=== PATIENT | male | born 1980 | race Caucasian/White ===

== ENCOUNTER 2017-07-13 06:10 | Emergency (ER) | payer BC, MEDICAID ==
[~2017-07-13] VITALS: Ht 177.8 cm; Wt 83.1 kg
[~2017-07-13 06:10] MED LIST: RANI150T8 PO
[2017-07-13] MEDS ORDERED: KETOROLAC 30 MG/1 ML ONE ×2 (06:58→06:59)
[2017-07-13] MEDS ORDERED: ALBUTEROL/IPRATROPIUM 2.5MG/0.5MG, 3 ML NPPB ONE (07:00)
[2017-07-13] MEDS ORDERED: KETOROLAC 30 MG/1 ML IM ONE (07:00)
[2017-07-13] MEDS ORDERED: ALBUTEROL/IPRATROPIUM 2.5MG/0.5MG, 3 ML ONE (07:56)
[2017-07-13 08:07] LABS: RAPID INFLUENZA A Negative (Negative); RAPID INFLUENZA B Negative (Negative)
[2017-07-13 08:24] VITALS: BP 128/74
== END 2017-07-13 08:26 | disposition home or self-care (01) ==
LOC: ED 07:14
DX: J20.9 Acute bronchitis, unspecified (principal); K08.89 Other specified disorders of teeth and supporting structures; K21.9 Gastro-esophageal reflux disease without esophagitis; G51.0 Bell's palsy
CPT/HCPCS: 71020; 87400; 94640; 96372; 99285; J1885; J7620

== ENCOUNTER 2019-12-23 13:21 | Emergency (ER) | payer BC ==
[~2019-12-23] VITALS: Ht 175.3 cm; Wt 82.0 kg
[~2019-12-23 13:21] MED LIST changes: +RANI-467 PO; -RANI150T8 PO
[2019-12-23 13:58] LABS: BASOPHILS # (AUTO) 0.01 x10^3/uL (0-0.1); BASOPHILS % (AUTO) 0 % (0-1); EOSINOPHILS # (AUTO) 0.18 x10^3/uL (0-0.4); EOSINOPHILS % (AUTO) 3 % (1-7); LYMPHOCYTES # (AUTO) 1.71 x10^3/uL (1-3.4); LYMPHOCYTES % (AUTO) 31 % (22-44); MD NO; MEAN CORPUSCULAR HEMOGLOBIN 32.1 pg (27.5-34.5); MEAN CORPUSCULAR HGB CONC 34.2 g/dL (33.2-36.2); MEAN CORPUSCULAR VOLUME 93.7 fL (81-97); MEAN PLATELET VOLUME 8.1 fL (7.4-10.4); MONOCYTES # (AUTO) 0.58 x10^3/uL (0.2-0.8); MONOCYTES % (AUTO) 10 % (2-9); NEUTROPHILS # (AUTO) 3.08 x10^3/uL (1.8-6.8); NEUTROPHILS % (AUTO) 55 % (42-75); PLATELET COUNT 260 x10^3/uL (130-400); RED BLOOD COUNT 5.14 x10^6/uL (4.38-5.82); RED CELL DISTRIBUTION WIDTH 13.6 % (9.4-14.8)
[2019-12-23] MEDS ORDERED: SODIUM CHLORIDE FLUSH 10ML SYR IVF ONE (14:00)
[2019-12-23] MEDS ORDERED: KETOROLAC 30 MG/1 ML IVPush ONE (14:00)
[2019-12-23 14:05] LABS: ALBUMIN 3.7 g/dL (3.4-5.0); ANION GAP 3 mmol/L (5-15); CALCIUM 8.5 mg/dL (8.5-10.1); CHLORIDE 111 mmol/L (98-107); CREATININE 0.92 mg/dL (0.7-1.3)
[2019-12-23] MEDS ORDERED: PLEASE ENTER HEIGHT AND WEIGHT MC SCH (14:07)
[2019-12-23] MEDS ORDERED: KETOROLAC 30 MG/1 ML ONE (14:10)
--- NOTE | 2019-12-23 14:44 | NUR ---
Medicated per emar for left flank pain rated at 6/10 Ua sent
[2019-12-23 15:02] LABS: MICROSCOPIC INDICATED
--- NOTE | 2019-12-23 15:15 | NUR ---
WITH REASSESSMENT PAIN IMPROVED TO 1/10 REPORT TO EFREN RN
[2019-12-23 15:29] LABS: CULTURE INDICATED? NO
[2019-12-23 17:26] VITALS: BP 129/86
--- NOTE | 2019-12-23 17:26 | NUR ---
nimisha tobar given dc instruction
== END 2019-12-23 17:30 | disposition home or self-care (01) ==
LOC: ED 13:49
DX: N20.0 Calculus of kidney (principal); R30.0 Dysuria; F17.210 Nicotine dependence, cigarettes, uncomplicated
CPT/HCPCS: 36415; 74176; 80048; 81001; 82040; 85025; 96374; 99284; J1885

== ENCOUNTER 2020-01-15 02:10 | Emergency (ER) | payer BC ==
[~2020-01-15] VITALS: Ht 177.8 cm; Wt 78.0 kg
--- NOTE | 2020-01-15 02:28 | NUR ---
Pt presents to ed c/o coughx1 month and wheezing. Denies any febrile s/s. Denies any further respiratory s/s. 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 States a pack a day smoker and family hx of heart dx, denies any heart dx himself.
[2020-01-15] MEDS ORDERED: ASPIRIN 81 MG TABLET CHEW PO ONE (02:30)
[2020-01-15] MEDS ORDERED: ASPIRIN 81 MG TABLET CHEW ONE (02:32)
[2020-01-15 02:48] LABS: BASOPHILS # (AUTO) 0.04 x10^3/uL (0-0.1); BASOPHILS % (AUTO) 1 % (0-1); EOSINOPHILS # (AUTO) 0.25 x10^3/uL (0-0.4); EOSINOPHILS % (AUTO) 3 % (1-7); LYMPHOCYTES # (AUTO) 2.43 x10^3/uL (1-3.4); LYMPHOCYTES % (AUTO) 32 % (22-44); MD NO; MEAN CORPUSCULAR HEMOGLOBIN 31.8 pg (27.5-34.5); MEAN CORPUSCULAR HGB CONC 33.5 g/dL (33.2-36.2); MEAN CORPUSCULAR VOLUME 94.8 fL (81-97); MEAN PLATELET VOLUME 7.3 fL (7.4-10.4); MONOCYTES % (AUTO) 6 % (2-9); NEUTROPHILS # (AUTO) 4.48 x10^3/uL (1.8-6.8); NEUTROPHILS % (AUTO) 58 % (42-75); PLATELET COUNT 288 x10^3/uL (130-400); RED BLOOD COUNT 5.08 x10^6/uL (4.38-5.82); RED CELL DISTRIBUTION WIDTH 13.1 % (9.4-14.8)
[2020-01-15 03:01] LABS: ALANINE AMINOTRANSFERASE 28 U/L (12-78); ALBUMIN 3.6 g/dL (3.4-5.0); ANION GAP 5 mmol/L (5-15); CALCIUM 8.7 mg/dL (8.5-10.1); CHLORIDE 109 mmol/L (98-107); CREATININE 0.89 mg/dL (0.7-1.3)
[2020-01-15 03:06] LABS: ALKALINE PHOSPHATASE 83 U/L (45-117); BILIRUBIN,TOTAL 0.3 mg/dL (0.2-1.0); TOTAL PROTEIN 7.2 g/dL (6.4-8.2); TROPONIN I < 0.015 ng/mL (0.000-0.045)
[2020-01-15 03:31] VITALS: BP 139/90
--- NOTE | 2020-01-15 04:07 | NUR ---
Patient given discharge instructions and they have confirmed that they understand the instructions. Patient ambulatory with steady gait.
== END 2020-01-15 04:09 | disposition home or self-care (01) ==
LOC: ED 02:32
DX: J44.1 Chronic obstructive pulmonary disease with (acute) exacerbation (principal); R07.89 Other chest pain; F17.210 Nicotine dependence, cigarettes, uncomplicated
CPT/HCPCS: 36415; 71045; 80053; 83880; 84484; 85025; 93005; 99285; 99406; J7512

== ENCOUNTER 2020-01-26 16:23 | Emergency (ER) | payer BC ==
[~2020-01-26] VITALS: Ht 177.8 cm; Wt 79.5 kg
[2020-01-26 16:26] VITALS: BP 114/72
--- NOTE | 2020-01-26 17:00 | NUR ---
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
--- NOTE | 2020-01-26 17:06 | NUR ---
FIRST CONTACT WITH PT. PT REPORTS FLANK PAIN X TWO DAYS. HX OF KIDNEY STONES, "THIS FEELS EXACTLY THE SAME". PT REPORTS "I THINK IT PASSED" "MY PAIN IS PRETTY MUCH GONE". PT AMBULATORY TO RESTROOM TO PROVIDE UA.
[2020-01-26] MEDS ORDERED: KETOROLAC 60 MG/2 ML ONE (17:18)
--- NOTE | 2020-01-26 17:25 | NUR ---
UA SENT MEDICATED PER EMAR
[2020-01-26] MEDS ORDERED: KETOROLAC 30 MG/1 ML IM ONE (17:30)
[2020-01-26 18:01] LABS: MICROSCOPIC INDICATED
[2020-01-26 18:03] LABS: CULTURE INDICATED? NO
== END 2020-01-26 18:30 | disposition home or self-care (01) ==
LOC: ED 18:00
DX: N20.1 Calculus of ureter (principal); N23 Unspecified renal colic; R31.9 Hematuria, unspecified; J44.9 Chronic obstructive pulmonary disease, unspecified; F17.200 Nicotine dependence, unspecified, uncomplicated
CPT/HCPCS: 81001; 96372; 99283; J1885

== ENCOUNTER 2020-02-06 03:52 | Emergency (ER) | payer BC, OTHER ==
[~2020-02-06] VITALS: Ht 177.8 cm; Wt 79.8 kg
[2020-02-06 03:54] VITALS: BP 128/89
[2020-02-06] MEDS ORDERED: HYDROcodone/APAP 5/325 TABLET ONE (04:11)
[2020-02-06] MEDS ORDERED: HYDROcodone/APAP 5/325 TABLET PO PRN (04:30)
--- NOTE | 2020-02-06 05:29 | NUR ---
Patient/Caregiver given discharge instructions and they have confirmed that they understand the instructions. Patient ambulatory with steady gait.
== END 2020-02-06 05:30 | disposition home or self-care (01) ==
LOC: ED 04:26
DX: G89.11 Acute pain due to trauma (principal); M25.561 Pain in right knee; M79.671 Pain in right foot; J44.9 Chronic obstructive pulmonary disease, unspecified; K21.9 Gastro-esophageal reflux disease without esophagitis; F17.200 Nicotine dependence, unspecified, uncomplicated; X58.XXXA Exposure to other specified factors, initial encounter; Y93.89 Activity, other specified; Y92.69 Other specified industrial and construction area as the place of occurrence of the external cause; Y99.8 Other external cause status
CPT/HCPCS: 99284

== ENCOUNTER 2020-05-04 08:47 | Emergency (ER) | payer OTHER ==
[~2020-05-04] VITALS: Ht 177.8 cm; Wt 77.4 kg
[2020-05-04 08:49] VITALS: BP 107/72
[2020-05-04] MEDS ORDERED: KETOROLAC 30 MG/1 ML ONE (09:10)
[2020-05-04] MEDS ORDERED: OXYcodone/APAP 5/325MG TABLET ONE (09:10)
[2020-05-04] MEDS ORDERED: KETOROLAC 30 MG/1 ML IM ONE (09:30)
[2020-05-04] MEDS ORDERED: OXYcodone/APAP 5/325MG TABLET PO ONE (09:30)
[2020-05-04 09:37] LABS: MICROSCOPIC INDICATED
--- NOTE | 2020-05-04 10:13 | NUR ---
TASK RN: Patient/Caregiver given discharge instructions and they have confirmed that they understand the instructions. Patient ambulatory with steady gait.
== END 2020-05-04 10:14 | disposition home or self-care (01) ==
LOC: ED 09:08
DX: N23 Unspecified renal colic (principal); K21.9 Gastro-esophageal reflux disease without esophagitis; J44.9 Chronic obstructive pulmonary disease, unspecified; G51.0 Bell's palsy
CPT/HCPCS: 81001; 96372; 99283; J1885

== ENCOUNTER 2020-05-18 07:35 | Emergency (ER) | payer BC, OTHER ==
[~2020-05-18] VITALS: Ht 177.8 cm; Wt 78.2 kg
[2020-05-18] MEDS ORDERED: ONDANSETRON 2MG/ML, 2ML IVPush ONE (08:00)
[2020-05-18] MEDS ORDERED: KETOROLAC 30 MG/1 ML IVPush ONE (08:00)
[2020-05-18] MEDS ORDERED: SODIUM CHLORIDE FLUSH 10ML SYR IVF ONE (08:00)
[2020-05-18] MEDS ORDERED: ONDANSETRON 2MG/ML, 2ML ONE (08:12)
[2020-05-18] MEDS ORDERED: KETOROLAC 30 MG/1 ML ONE (08:12)
--- NOTE | 2020-05-18 08:17 | NUR ---
PATIENT C/O 05/17 LEFT FLANK PAIN. MEDICATED PER eMAR, EDUCATED ON NEED FOR URINE SAMPLE. NO FURTHER NEEDS AT THIS TIME.
[2020-05-18 08:18] LABS: BASOPHILS # (AUTO) 0.03 x10^3/uL (0-0.1); BASOPHILS % (AUTO) 0 % (0-1); EOSINOPHILS # (AUTO) 0.22 x10^3/uL (0-0.4); EOSINOPHILS % (AUTO) 3 % (1-7); LYMPHOCYTES # (AUTO) 2.05 x10^3/uL (1-3.4); LYMPHOCYTES % (AUTO) 26 % (22-44); MD NO; MEAN CORPUSCULAR HEMOGLOBIN 31.4 pg (27.5-34.5); MEAN CORPUSCULAR HGB CONC 32.6 g/dL (33.2-36.2); MEAN CORPUSCULAR VOLUME 96.4 fL (81-97); MEAN PLATELET VOLUME 7.6 fL (7.4-10.4); MONOCYTES # (AUTO) 0.62 x10^3/uL (0.2-0.8); MONOCYTES % (AUTO) 8 % (2-9); NEUTROPHILS # (AUTO) 4.89 x10^3/uL (1.8-6.8); NEUTROPHILS % (AUTO) 63 % (42-75); PLATELET COUNT 301 x10^3/uL (130-400); RED BLOOD COUNT 5.54 x10^6/uL (4.38-5.82); RED CELL DISTRIBUTION WIDTH 13.1 % (9.4-14.8)
[2020-05-18 08:29] LABS: ANION GAP 3 mmol/L (5-15); CALCIUM 8.6 mg/dL (8.5-10.1); CHLORIDE 112 mmol/L (98-107); CREATININE 1.27 mg/dL (0.7-1.3)
[2020-05-18] MEDS ORDERED: MORPHINE SULFATE 4 MG/ML, 1ML ONE (09:14)
--- NOTE | 2020-05-18 09:19 | NUR ---
PT CONTINUES TO C/O 07/17 FLANK PAIN, ER PROVIDER MADE AWARE. ADDITIONAL ORDERS RECIEVED. PT MEDICATED PER DEC. Addendum: 05/18/20 at 0920 by [email or web address] PT REMINDED NEED FOR URINE SAMPLE, PT STATES UNABLE TO URINATE AT THIS TIME D/T PAIN LEVEL
[2020-05-18 09:20] VITALS: BP 140/91
[2020-05-18] MEDS ORDERED: MORPHINE SULFATE 4 MG/ML, 1ML IVPush ONE (09:30)
[2020-05-18 09:37] LABS: MICROSCOPIC AUTO
--- NOTE | 2020-05-18 10:22 | NUR ---
PT PIV REMOVED, PT VERBALIZED UNDERSTANDING OF DC TEACHING. PT UP IN RM GETTING DRESSED. UC CALLED THIS RN STATING PT CLAIMING HE IS UNABLE TO WALK AND PAIN HAS RETURNED. DISCUSSED WITH ER PROVIDER, PO MED ORDERED. DISCUSSED WITH PT HE WILL NOT RECIEVE IV MEDS PRIOR TO DC, OFFERED [facility], PT DECLINED. PT AMBULATED WITH THIS RN TO DC DESK, PT ABLE TO AMBULATED WITH STEADY GAIT. VERIFIED PT WITH [facility].
[2020-05-18] MEDS ORDERED: HYDROcodone/APAP 5/325 TABLET PO ONE (10:30)
== END 2020-05-18 10:26 | disposition home or self-care (01) ==
LOC: ED 09:10
DX: N20.1 Calculus of ureter (principal); R10.9 Unspecified abdominal pain; R31.9 Hematuria, unspecified; R11.0 Nausea; J44.9 Chronic obstructive pulmonary disease, unspecified; K21.9 Gastro-esophageal reflux disease without esophagitis; F17.210 Nicotine dependence, cigarettes, uncomplicated
CPT/HCPCS: 36415; 74176; 80048; 81001; 82040; 85025; 96374; 96375; 99284; J1885; J2270; J2405

== ENCOUNTER 2020-06-23 21:59 | Emergency (ER) | payer BC, OTHER ==
[~2020-06-23] VITALS: Ht 177.8 cm; Wt 77.5 kg
[2020-06-23 22:01] VITALS: BP 128/70
--- NOTE | 2020-06-23 23:17 | NUR ---
39 YEAR OLD MALE TO ED FOR HEAD INJURY. HE STATES HE WAS WORKING A [employer]T AND HIT HIS HEAD. SINCE THEN HE HAD BLURRY VISION IN HIS LEFT EYE AND A HEADACHE. HE DENIES LOC.
[2020-06-23] MEDS ORDERED: HYDROcodone/APAP 5/325 TABLET PO ONE (23:30)
[2020-06-23] MEDS ORDERED: HYDROcodone/APAP 5/325 TABLET ONE (23:31)
== END 2020-06-24 00:50 | disposition home or self-care (01) ==
LOC: ED 06-24 00:15
DX: S09.90XA Unspecified injury of head, initial encounter (principal); R42 Dizziness and giddiness; R11.0 Nausea; H53.8 Other visual disturbances; J44.9 Chronic obstructive pulmonary disease, unspecified; K21.9 Gastro-esophageal reflux disease without esophagitis; X58.XXXA Exposure to other specified factors, initial encounter; Y93.89 Activity, other specified; Y92.69 Other specified industrial and construction area as the place of occurrence of the external cause; Y99.0 Civilian activity done for income or pay
CPT/HCPCS: 93005; 99283

== ENCOUNTER 2020-08-05 17:55 | Emergency (ER) | payer OTHER ==
[~2020-08-05] VITALS: Ht 177.8 cm; Wt 75.3 kg
--- NOTE | 2020-08-05 19:53 | NUR ---
ASSUMED CARE OF PT AT THIS TIME. PT STEADY UPON AMBULATION TO ROOM. NO ACUTE DISTRESS NOTED AT THIS TIME. SKIN PWD. RESP EVEN AND UNLABORED. CALL LIGHT WITHIN REACH. WILL CONT TO MONITOR PT.
[2020-08-05 20:00] VITALS: BP 141/92
--- NOTE | 2020-08-05 20:45 | NUR ---
PT REQUESTED FOOD/DRINK "I MISSED LUNCH. THE [employer] [facility] COMES AT 7." PT PROVIDED WITH SNACKS WITH OKAY BY [employer] [facility]. PT AWARE WE ARE WAITING FOR IMAGING RESULTS. PT ON CONT BP AND SPO2 MONITORS. CALL LIGHT WITHIN REACH. WILL CONT TO MONITOR PT.
== END 2020-08-05 21:42 | disposition home or self-care (01) ==
LOC: ED 21:01
DX: S20.212A Contusion of left front wall of thorax, initial encounter (principal); K21.9 Gastro-esophageal reflux disease without esophagitis; J44.9 Chronic obstructive pulmonary disease, unspecified; X58.XXXA Exposure to other specified factors, initial encounter; Y93.89 Activity, other specified; Y92.69 Other specified industrial and construction area as the place of occurrence of the external cause; Y99.0 Civilian activity done for income or pay
CPT/HCPCS: 99283

== ENCOUNTER 2020-10-28 22:32 | Emergency (ER) | payer BC, OTHER ==
[~2020-10-28] VITALS: Ht 177.8 cm; Wt 76.2 kg
--- NOTE | 2020-10-28 22:50 | NUR ---
pt ambulated to room 4, c/o pain to right flank area.
[2020-10-28] MEDS ORDERED: KETOROLAC 30 MG/1 ML IVPush ONE (23:00)
[2020-10-28] MEDS ORDERED: KETOROLAC 30 MG/1 ML ONE (23:04)
[2020-10-28 23:07] LABS: MICROSCOPIC NOT IND
[2020-10-28 23:14] VITALS: BP 132/90
--- NOTE | 2020-10-28 23:18 | NUR ---
pt awake and alert, on occasion winces and complains of severe pain to right flank pain that comes and goes. MD to bedside to eval pt, and orders received. IV started to right hand x1 attempt, pt tolerated well, flushed easy and taped and secured without issue. Meds given per EMAR for pain. Pt states some relief from the pain. Initial pain amount a 8/10. After pain meds, pain level is closer to 4/10 per pt.
[2020-10-28 23:19] LABS: BASOPHILS % (AUTO) 0 % (0-1); EOSINOPHILS % (AUTO) 3 % (1-7); LYMPHOCYTES % (AUTO) 29 % (22-44); MEAN CORPUSCULAR HEMOGLOBIN 32.3 pg (27.5-34.5); MEAN PLATELET VOLUME 7.6 fL (7.4-10.4); MONOCYTES % (AUTO) 9 % (2-9); NEUTROPHILS % (AUTO) 59 % (42-75); PLATELET COUNT 289 x10^3/uL (130-400); RED BLOOD COUNT 5.31 x10^6/uL (4.38-5.82); RED CELL DISTRIBUTION WIDTH 13.3 % (9.4-14.8)
[2020-10-28 23:20] LABS: MD NO
[2020-10-28 23:26] LABS: ALANINE AMINOTRANSFERASE 33 U/L (12-78); ALBUMIN 3.8 g/dL (3.4-5.0); ANION GAP 4 mmol/L (5-15); CALCIUM 8.8 mg/dL (8.5-10.1); CHLORIDE 113 mmol/L (98-107); CREATININE 1.09 mg/dL (0.7-1.3)
[2020-10-28 23:28] LABS: ALKALINE PHOSPHATASE 92 U/L (45-117); BILIRUBIN,TOTAL 0.2 mg/dL (0.2-1.0); TOTAL PROTEIN 7.5 g/dL (6.4-8.2)
== END 2020-10-29 00:11 | disposition home or self-care (01) ==
LOC: ED 10-29 00:01
DX: N20.1 Calculus of ureter (principal); R10.12 Left upper quadrant pain; M54.9 Dorsalgia, unspecified; J44.9 Chronic obstructive pulmonary disease, unspecified; K21.9 Gastro-esophageal reflux disease without esophagitis; G51.0 Bell's palsy; F17.200 Nicotine dependence, unspecified, uncomplicated; Z88.8 Allergy status to other drugs, medicaments and biological substances
CPT/HCPCS: 36415; 80053; 81003; 83690; 85025; 96374; 99283; J1885